=== PATIENT | female | born 2000 | race Caucasian/White ===

== ENCOUNTER 2022-02-04 16:20 | Inpatient (IN) | payer MEDICAID, OTHER ==
[~2022-02-04] VITALS: Ht 154 cm; Wt 61.0 kg
[2022-02-04] MEDS ORDERED: METHYLERGONOVINE 0.2 MG/ML AMP IM PRN (16:45)
[2022-02-04] MEDS ORDERED: ONDANSETRON 4 MG/2 ML VIAL IVP PRN (16:45)
[2022-02-04] MEDS ORDERED: MORPHINE SULFATE 10 MG/ML VIAL IVP PRN (16:55)
[2022-02-04] MEDS ORDERED: OXYTOCIN 20 UNITS in LACTATED RINGERS 1,000 ML IV SCH (17:05)
[2022-02-04 17:09] LABS: BASOPHILS % (AUTO) 0.3 % (0.0-2.0); EOSINOPHILS # (AUTO) 0.1 K/uL (0-0.4); EOSINOPHILS % (AUTO) 0.7 % (0.0-4.0); HEMATOCRIT 36.5 % (36-48); HEMOGLOBIN 12.4 g/dL (12.0-16.0); LYMPHOCYTES # (AUTO) 1.6 K/uL (2.5-16.5); LYMPHOCYTES % (AUTO) 14.7 % (20.5-51.1); MEAN CORPUSCULAR HEMOGLOBIN 31 pg (27-31); MEAN CORPUSCULAR HGB CONC 34 g/dL (33-37); MEAN CORPUSCULAR VOLUME 90.3 fL (80-94); MONOCYTES # (AUTO) 0.8 K/uL (0.8-1.0); MONOCYTES % (AUTO) 7.7 % (1.7-9.3); NEUTROPHILS # (AUTO) 8.4 K/uL (1.8-7.7); NEUTROPHILS % (AUTO) 76.6 % (42.2-75.2); PLATELET COUNT (AUTO) 327 K/uL (140-450); RED BLOOD CELL COUNT(AUTO) 4.04 MIL/uL (4.20-5.40); RED CELL DISTRIBUTION WIDTH 14.8 % (11.6-13.7); WHITE BLOOD COUNT (AUTO) 10.9 K/uL (4.8-10.8)
[2022-02-04 17:28] LABS: PROTHROMBIN TIME 9.3 secs (10.8-13.4)
[2022-02-04 17:33] LABS: ALBUMIN 2.5 g/dL (3.4-5.0); ANION GAP 13.6 (8-16); CARBON DIOXIDE 23.6 mmol/L (21-32); CREATININE 0.5 mg/dL (0.6-1.3); POTASSIUM 4.2 mmol/L (3.5-5.1); TOTAL BILIRUBIN 0.6 mg/dL (0.0-1.0)
[2022-02-04] MEDS: LACTATED RINGERS 1,000 ML IV SCH ×3 (17:35→22:07)
[2022-02-04 17:42] VITALS: BP 114/66
[2022-02-04] MEDS ORDERED: AMPICILLIN 2,000 MG in NACL 0.9% 100 ML IV SCH (17:45)
[2022-02-04] MEDS ORDERED: AMPICILLIN 2,000 MG VIAL ONE (18:15)
[2022-02-04] MEDS ORDERED: ROPIVACAINE 0.2%/NS PREMIX 200 ML EPI ONE (19:32)
[2022-02-04] MEDS ORDERED: fentaNYL citrate 0.05 MG/ML VIAL ONE (19:33)
[2022-02-04] MEDS ORDERED: ROPIVACAINE 0.2%/NS PREMIX 200 ML EPI SCH (20:00)
[2022-02-04] MEDS ORDERED: fentaNYL citrate 0.05 MG/ML VIAL IVP ONE (20:00)
[2022-02-04 21:05] LABS: APPEARANCE,URINE CLEAR (CLEAR); BILIRUBIN,URINE 1+ (NEGATIVE); BLOOD, URINE NEGATIVE (NEGATIVE); COLOR,URINE YELLOW (YELLOW); LEUKOCYTE ESTERASE ,URINE NEGATIVE (NEGATIVE); NITRITE, URINE NEGATIVE (NEGATIVE); PH,URINE 6.5 (5.0-9.0); UGLUCOSE 1+ (NEGATIVE)
[2022-02-04 21:13] LABS: BARBITURATE, URINE NEGATIVE ng/ml (NEG <=200); BENZODIAZEPINE, URINE NEGATIVE ng/mL (NEG <=200); CANNABINOID, URINE NEGATIVE ng/mL (NEG <=50); COCAINE, URINE NEGATIVE ng/mL (NEG <=300); OPIATE, URINE POSITIVE ng/mL (NEG <=2000); PHENCYCLIDINE SCREEN,URINE NEGATIVE ng/mL (NEG <=25)
[2022-02-04] MEDS ORDERED: AMPICILLIN 1,000 MG in NACL 0.9% 50 ML IV SCH (22:00)
[2022-02-04] MEDS ORDERED: AMPICILLIN 1,000 MG VIAL ONE (22:03)
[2022-02-05] MEDS ORDERED: OXYTOCIN 20 UNITS/LR PREMIX 1,000 ML IV ONE (01:18)
[2022-02-05] MEDS ORDERED: IBUPROFEN 800 MG TAB PO PRN (06:15)
[2022-02-05] MEDS ORDERED: TEMAZEPAM 15 MG CAP PO PRN (06:15)
[2022-02-05] MEDS ORDERED: SODIUM PHOSPHATE 118 ML ENEM RC PRN (06:15)
[2022-02-05] MEDS ORDERED: oxyCODONE/APAP 5/325 MG 1 TAB TAB PO PRN (06:15)
[2022-02-05] MEDS ORDERED: BENZOCAINE/MENTHOL 20%-0.5% 60 GM CAN TP PRN (06:15)
[2022-02-05] MEDS ORDERED: METHYLERGONOVINE 0.2 MG/ML AMP IM PRN (06:15)
[2022-02-05] MEDS ORDERED: MEASLES, MUMPS, AND RUBELLA 1 VIAL SQVAC ONE (06:15)
--- NOTE | 2022-02-05 10:42 | NUR ---
PATIENT HAS BEEN SCREENED AND CATEGORIZED LOW NUTRITION RISK. PATIENT WILL BE SEEN WITHIN 7 DAYS OF ADMISSION. 02/11/22 REVIEWED BY AARON DECK[address] RD
[2022-02-05] MEDS: HYDROcodone/APAP 5/325 MG 1 TAB TAB PO PRN (16:27)
[2022-02-05] MEDS ORDERED: DOCUSATE SOD/SENNA 50/8.6 MG 1 TAB PO SCH (21:00)
[2022-02-06 06:01] LABS: HEMATOCRIT 36.2 % (36-48); HEMOGLOBIN 12.2 g/dL (12.0-16.0)
[2022-02-06] MEDS: HYDROcodone/APAP 5/325 MG 1 TAB TAB PO PRN ×2 (07:00→19:51)
[2022-02-07] MEDS ORDERED: FLU VACCINE QS2022-23 0.5 ML SYR IMVAC ONE (04:00)
[2022-02-07] MEDS ORDERED: diphenhydrAMINE 12.5 MG/5 ML UDC PO SCH (04:05)
== END 2022-02-07 14:00 | disposition home or self-care (01) | DRG 560 ==
LOC: MLD 16:20 → MFCC 02-05 07:50
PROVIDERS: ADMIT Advanced Practice Midwife; ATTEND Obstetrics & Gynecology
PROC: 10E0XZZ Delivery of Products of Conception, External Approach (ICD-10-PCS; principal; 2022-02-05)
PROC: 0KQM0ZZ Repair Perineum Muscle, Open Approach (ICD-10-PCS; 2022-02-05)
PROC: 3E0R3BZ Introduction of Anesthetic Agent into Spinal Canal, Percutaneous Approach (ICD-10-PCS; 2022-02-05)
PROC: 00HU33Z Insertion of Infusion Device into Spinal Canal, Percutaneous Approach (ICD-10-PCS; 2022-02-05)
PROC: 3E0234Z Introduction of Serum, Toxoid and Vaccine into Muscle, Percutaneous Approach (ICD-10-PCS; 2022-02-07)
DX: O69.1XX0 Labor and delivery complicated by cord around neck, with compression, not applicable or unspecified (principal); Z37.0 Single live birth; O71.4 Obstetric high vaginal laceration alone; O77.0 Labor and delivery complicated by meconium in amniotic fluid; Z20.822 Contact with and (suspected) exposure to COVID-19; Z3A.37 37 weeks gestation of pregnancy; Z23 Encounter for immunization
CPT/HCPCS: 36415; 51702; 59409; 80053; 80305; 81003; 85018; 85025; 85610; 85730; 86592; 86762; 86886; 86900; 86901; 87340; 87653-90; 90715; J0290; J2270; J2405; J2590; J2795; J3010; J7120; Q0163

== ENCOUNTER 2022-03-04 17:10 | Emergency (ER) | payer MEDICAID, OTHER ==
[~2022-03-04] VITALS: Ht 160 cm; Wt 58.5 kg
[2022-03-04 17:19] VITALS: BP 108/73
--- NOTE | 2022-03-04 17:32 | NUR ---
No answer in lobby or outside
--- NOTE | 2022-03-04 17:48 | NUR ---
No answer in lobby
--- NOTE | 2022-03-04 18:00 | NUR ---
FINAL ATTEMPT, NO ANSWER IN [email or web address]. PATIENT LEFT WITHOUT BEING SEEN BY DR. LEIGH/ALEX FLORES. NO FURTHER CARE PROVIDED FOR PATIENT.
== END 2022-03-04 17:32 | disposition left against medical advice (07) ==
LOC: MED 17:10
DX: R20.0 Anesthesia of skin (principal); Z53.21 Procedure and treatment not carried out due to patient leaving prior to being seen by health care provider

== ENCOUNTER 2022-05-26 11:44 | Emergency (ER) | payer SELFPAY ==
[~2022-05-26] VITALS: Ht 157.5 cm; Wt 56.2 kg
[2022-05-26 11:50] VITALS: BP 112/62
--- NOTE | 2022-05-26 11:54 | NUR ---
PT AMBULATED TO ER BED 8
--- NOTE | 2022-05-26 12:10 | NUR ---
PT REPORTED SHE NEEDED TO LEAVE D/T IN FAMILY. PATIENT LEFT WITHOUT BEING SEEN BY DR. CHOUDHARY. NO FURTHER CARE PROVIDED FOR PATIENT.
== END 2022-05-26 12:10 | disposition left against medical advice (07) ==
LOC: MED 11:44
DX: O46.91 Antepartum hemorrhage, unspecified, first trimester (principal); Z3A.01 Less than 8 weeks gestation of pregnancy; Z53.21 Procedure and treatment not carried out due to patient leaving prior to being seen by health care provider
CPT/HCPCS: 99281